=== PATIENT | male | born 1995 | race Caucasian/White ===

== ENCOUNTER → 2023-11-30 07:13 | Outpatient (REF) | payer BC, SELFPAY | LOC: HWRAD 07:13 | PROVIDERS: ATTENDING PHYSICIAN Student in an Organized Health Care Education/Training Program; FAMILY PHYSICIAN Family Medicine | DX: R63.0 Anorexia (principal); R68.81 Early satiety; R14.0 Abdominal distension (gaseous) | CPT/HCPCS: 76700 ==